=== PATIENT | female | born 1935 | race Caucasian/White ===

== ENCOUNTER → 2018-12-31 | Outpatient (CLI) | payer MEDICARE ==
--- NOTE | 2018-12-31 18:00 | Diagnostic Imaging Report ---
EXAM: CHEST 2 VIEWS, PA and lateral DATE: 12/31/2018 Time stamp on exam: 2:37 PM INDICATION: Cough COMPARISON: None FINDINGS: LINES/TUBES: Sternotomy sutures, prosthetic valve and graft bypass markers are noted. LUNGS: Right lung airspace opacity may represent pneumonia in the correct clinical setting. Consider chest CT for further evaluation. PLEURA: No effusions or pneumothorax. HEART AND MEDIASTINUM: Normal size and contour. Tortuous thoracic aorta. BONES AND SOFT TISSUES: No acute findings. Degenerative changes of the spine. IMPRESSION: Right airspace opacity may represent pneumonia in the correct clinical setting. Signed by: Dr. Trenton Fu DO on 12/31/2018 5:57 PM
== END ==
LOC: RAD 14:20
PROVIDERS: ATTEND Internal Medicine
DX: R05 Cough (principal)
CPT/HCPCS: 71046